=== PATIENT | female | born 1960 | race Caucasian/White ===

== ENCOUNTER → 2019-03-28 12:39 | Outpatient (BNVA) | payer OTHER, SELFPAY | PROVIDERS: Family Provider Nurse Practitioner; PCP Nurse Practitioner; Visit Provider Nurse Practitioner | DX: I10 Essential (primary) hypertension (principal); F41.1 Generalized anxiety disorder | CPT/HCPCS: 36415; 80053; 80061 ==

== ENCOUNTER → 2019-07-27 13:47 | Outpatient (BNVA) | payer OTHER, SELFPAY | PROVIDERS: Family Provider Nurse Practitioner; PCP Nurse Practitioner; Visit Provider Nurse Practitioner | DX: I10 Essential (primary) hypertension (principal); F41.1 Generalized anxiety disorder | CPT/HCPCS: 80053 ==

== ENCOUNTER → 2020-02-06 12:00 | Outpatient (BNVA) | payer OTHER, SELFPAY | PROVIDERS: Family Provider Nurse Practitioner; PCP Nurse Practitioner; Visit Provider Nurse Practitioner | DX: I10 Essential (primary) hypertension (principal); F41.1 Generalized anxiety disorder; J30.1 Allergic rhinitis due to pollen; E83.52 Hypercalcemia; Z23 Encounter for immunization | CPT/HCPCS: 80053; 80061; 82310; 83970; 84443 ==

== ENCOUNTER 2020-07-09 19:24 | Emergency (ER) | payer OTHER, SELFPAY ==
[2020-07-09 19:30] VITALS: BP 134/83; PULSE 96; RESP 18; TEMP 37.1; O2SAT 96; BMI 25.8
[2020-07-09 22:34] LABS: Hematocrit 44.9 % (37.0-47.0); Hemoglobin 14.9 g/dL (11.5-15.3); Mean Corpuscular HGB Conc 33.2 g/dL (30.0-36.0); Mean Corpuscular Hemoglobin 29.6 pg (28.0-34.0); Mean Corpuscular Volume 89.1 fL (81-99); Mean Platelet Volume 9.6 fL (7.4-10.4); Platelet Count 325 10^3/cmm (130-400); Red Blood Count 5.04 10^6/uL (4.1-5.3); Red Cell Distribution Width 12.9 % (12.1-15.1); White Blood Count 19.8 10^3/uL (4.0-10.0)
[2020-07-09 22:44] LABS: Add Urine Microscopic? YES; Bacteria Urine 2+ /hpf; Bilirubin Urine 1+ (Negative); Blood Urine 3+ (Negative); Glucose Urine UA Norm (Normal); Ketones Urine Negative (Negative); Leukocyte Esterase Urine Negative (Negative); Mucus Urine 1+ /hpf; Nitrate Urine Negative (Negative); Protein Urine 1+ (Negative); RBC Urine 0-4 /hpf (0-2); Urine Appearance Clear (CLEAR); Urine Color Yellow (Yellow); Urobilinogen Urine Norm (Negative); pH Urine 5 (5-7)
[2020-07-09] MEDS: ondansetron 2 mg/ML SDV 2 mL 4 MG IVP (22:48)
[2020-07-09] MEDS: sodium chloride 0.9% 1,000 ML 999 ML IV (22:48)
--- NOTE | 2020-07-09 22:48 | ED_ITS ---
HPI - Abdominal Pain General: Chief Complaint: Abdominal Pain Stated Complaint: H/A, EAR ACHE, N/V, SICK X 4 DAYS Time Seen by Provider: 07/09/20 21:51 Source: patient Mode of arrival: ambulatory Limitations: no limitations History of Present Illness: HPI narrative: 60-year-old female patient presents to the emergency department with onset of nausea vomiting x4 days. She reports today onset of right lower quadrant pain. Reports not able to tolerate fluids or food without vomiting. Reports last ate last night. She states has experienced headache with earache. She reports history of gallbladder removal. She reports every time she drinks something she has diarrhea. She has had several episodes today. Denies hematemesis or hematochezia. She reports right lower quadrant pain seems to make nausea worse. She reports chills but has not taken her temperature. She also reports cough congestion, she reports abdominal pain with cough. No ill contacts in her home/exposure. MD elicited complaint: abdominal pain Onset (ago): day(s) (4) Pain Consistency: constant Location: None Exacerbating factors: eating Relieving factors: rest Associated Symptoms: Reports anorexia, chills, diarrhea, loose stools, nausea, poor appetite and vomiting; Denies coffee ground emesis, GI cramping, fever(s), heartburn, hematochezia, hematuria, hematemesis, fecal incontinence, melena and syncope Review of Systems General: Reports: 10 or more systems reviewed and unremarkable except in HPI and below Const: Reports: chills, fatigue and malaise; Denies: fever(s), body aches or change in sleep pattern Eyes: Denies: change in vision, blurry vision, eye discomfort, eye redness or yellow eyes ENMT: Denies: throat pain, uvular edema, hoarseness, oral sores, dental pain or disequilibrium Card: Denies: palpitations, swelling of feet/ankles, syncope, dyspnea on exertion or orthopnea Resp: Reports: productive cough and chest congestion; Denies: dyspnea, non-productive cough or wheezing GI: Reports: abdominal pain, nausea, vomiting and diarrhea; Denies: hematemesis, coffee ground emesis, heartburn, GI cramping, fecal incontinence, hematochezia or melena : Denies: hematuria Musc: Denies: neck pain, back pain, joint pain or joint warmth Skin/Breast: Denies: rash or pruritus Neuro: Reports: headache(s); Denies: weakness in extremities, sensory changes, lack of coordination, difficulty walking, confusion, behavioral changes or difficulty communicating thoughts Psych: Denies: anxiety or depression Wayne/Lymph: Denies: easy bruising PFSH ED PFSH: Medical History Arthritis, rheumatoid Blindness of left eye Caffeine dependence Depression Essential (primary) hypertension Generalized anxiety disorder Seasonal allergic rhinitis due to pollen Tobacco abuse Surgical History History of cholecystectomy Family History Mother Cancer Sister Cancer Son Family history of premature coronary artery disease Social History Smoking and tobacco status: former smoker Second hand smoke exposure: No Smoking risk assessment/counseling performed?: No Alcohol intake: never Desire information about alcohol rehabilitation?: No Counseling given: No Desire information about substance/drug rehabilitation?: No Counseling given: No Caregiver/support person: No Lives independently: Yes Household members: spouse Marital status: service: No History of recent travel: No Current gender identity: Female Physical Exam Const: COMMON NORMALS: no acute distress, patient oriented x3, alert and well nourished (Appears not feeling well) GENERAL APPEARANCE: cooperative, well developed and frail appearing; not anxious and not ill appearing ORIENTATION/CONSCIOUSNESS: Yes awake, Yes oriented to person, Yes oriented to place and Yes oriented to time HENMT: COMMON NORMALS: normocephalic, atraumatic, external ears normal, EAC's normal, Normal external nose present and moist oral mucous membranes HEAD & SCALP: normal to inspection, normocephalic and atraumatic FACE & SINUS: normal facial exam, face symmetric and sinus tenderness frontal; no ecchymosis, no erythema and no edema NOSE: Normal external nose present a nd Normal nares present; no Nasal discharge present EXTERNAL EAR: Yes external ears normal EXTERNAL AUDITORY CANAL: EAC's normal TYMPANIC MEMBRANE: TM normal on the right and TM abnormal TM laterality: left Details: dull, erythematous and loss of landmarks MOUTH: lip normal and moist mucous membranes abnormal (dry); no muffled voice THROAT: posterior oropharynx abnormal cobblestoning and erythema; no uvular edema Eye: COMMON NORMALS: Equal, round and reactive pupils present and EOMs intact bilaterally GENERAL EYE: appearance normal, both eyes and all related structures PERIORBITAL: periorbital findings normal EYELID: eyelids normal PUPIL: Yes Equal, round and reactive pupils present Neck/C-Spine: COMMON NORMALS: full ROM and no lymphadenopathy GENERAL: Yes normal visual inspection and Yes trachea midline CERVICAL SPINE: Yes cervical ROM normal Lymph: LYMPHATIC: no lymphadenopathy noted Chest: COMMONS NORMALS: normal inspection of the chest and normal palpation of entire chest wall Resp: COMMON NORMALS: normal respiratory effort, No retractions, No use of accessory muscles and clear to auscultation bilaterally EFFORT & INSPECTION: Yes able to speak in complete sentences AUSCULTATION: clear to auscultation bilaterally Cardio: COMMON NORMALS: regular rate, regular rhythm, S1 normal heart sound present, S2 normal heart sound present and Peripheral pulses 2+ throughout RATE: regular rate RHYTHM: regular rhythm HEART SOUNDS: S1 normal heart sound present and S2 normal heart sound present PERIPHERAL PULSES: Peripheral pulses 2+ throughout GI: COMMON NORMALS: Soft to palpation INSPECTION: Yes normal to inspection, No abdominal wall ecchymosis, No abdominal distension and No central obesity PALPATION: Yes Soft to palpation and Yes Tenderness to palpation present (GI) Details: RLQ (Positive McBurney's, negative rebound, negative psoas) Back/Pelvis: COMMON NORMALS: thoracic and lumbar spine normal to inspection, no thoracic nor lumbar tenderness and thoraco-lumbar ROM normal GENERAL BACK: Yes CVA tenderness CVA tenderness: right Extremity: COMMON NORMALS: normal to inspection, full ROM, capillary refill normal and no pedal edema GENERAL: Yes normal exam except as noted and Yes cyanosis (left hand, cool, warmed with normal cap refill and color) Neuro: COMMON NORMALS: patient oriented x3 and no focal motor deficits SEN SORIUM/ORIENTATION: Yes alert, Yes oriented to person, Yes oriented to place and Yes oriented to time Psych: COMMON NORMALS: mental status grossly normal, Normal thought process present and cooperative ACTIVITY/MOTOR BEHAVIOR: Yes appropriate eye contact THOUGHT PROCESS: Normal thought process present Skin: COMMON NORMALS: no rashes or lesions noted, no wounds, turgor normal, no petechiae and no mottling GENERAL SKIN EXAM: no rashes or lesions noted, turgor normal and dry skin Course Vital Signs: Vital signs: Vital Signs Temperature 98.8 F 07/09/20 19:30 Pulse Rate 86 07/10/20 01:26 Respiratory Rate 19 H 07/10/20 01:26 Blood Pressure 116/84 07/10/20 01:26 Pulse Oximetry 98 07/10/20 01:26 MDM - Abdominal Pain MDM Narrative: Medical decision making narrative: 60-year-old female patient presents to the emergency department with several day history of nausea vomiting. She is not able to tolerate p.o. fluids today as nausea would occur. She reports fever and chills but did not take her temperature. Oxygen saturation was on the low side during her stay, 89 to 92%. She is not oxygen dependent at home. CTA of the chest completed secondary to hypoxic reading during her stay. CTA revealed bronchopneumonia right upper lobe. CT scan of the abdomen pelvis with IV contrast negative for acute findings. Serology did reveal leukocytosis of 19,000 white count. Lipase normal, chemistry with no critical findings; rapid strep screen was negative, lactic acid 1.6. She did not complain of chest pain. EKG with sinus rhythm with possible left atrial enlargement, heart rate 84. Zofran and morphine administered here in the ED, nausea resolved she was able to tolerate p.o. fluids. She reports was feeling better after 1 L of IV fluids administered. Home oxygen eval completed and she did not qualify for home O2. Albuterol inhaler was provided with instruction per respiratory therapy, she was instructed to utilize it every 4 hours as needed for pain, and did help her cough and congestion. Differential Diagnosis: Differential diagnosis abdominal pain: Likely abdominal pain, calculus of kidney and endometriosis Lab Data: Labs: Lab Results 07/09/20 07/09/20 07/09/20 Range/Units 22:16 22:16 22:17 WBC 19.8 H (4.0-10.0) 10^3/ uL RBC 5.04 (4.1-5.3) 10^6/u L Hgb 14.9 (11.5-15.3) g/dL Hct 44.9 (37.0-47.0) % MCV 89.1 (81-99) fL MCH 29.6 (28.0-34.0) pg MCHC 33.2 (30.0-36.0) g/dL RDW 12.9 (12.1-15.1) % Plt Count 325 (130-400) 10^3/c mm MPV 9.6 (7.4-10.4) fL Lymph % (Auto) Not Reportable [place] % (Auto) Not Reportable Lymph # (Auto) Not Reportable [place] # (Auto) Not Reportable Total Counted 100 (0-100) Atypical Lymphs % 2.0 (0-5) % Absolute Neutrophi ls 16.2 H (1.4-6.5) 10^3/c mm Segmented Neutroph ils 57 % Abs Segm Neuts (Ma n) 11.3 H (1.6-7.1) 10/cmm Band Neutrophils 25.0 % Abs Band Neuts (Ma n) 5.0 H (0.0-1.2) 10^3/c mm Absolute Lymphocyt es 2.2 (1.2-3.4) 10^3/c mm Lymphocytes (Manua l) 9 % Monocytes (Manual) 7.0 % Absolute Monocytes 1.4 H (0.1-0.6) 10^3/c mm Eosinophils (Manua l) 0 % Absolute Eosinophi ls 0.0 (0.0-0.7) 10^3/c mm Basophils (Manual) 0.0 % Absolute Basophils 0.0 (0.0-0.2) 10^3/c mm Platelet Estimate Normal (Normal) Sodium 130 L (136-145) mmol/L Potassium 3.4 L (3.5-5.1) mmol/L Chloride 94 L (98-107) mmol/L Carbon Dioxide 25 (22-29) mmol/L Anion Gap 14.4 (5-19) BUN 12 (8-23) mg/dL Creatinine 1.0 H (0.5-0.9) mg/dL GFR Calculation 56.6 L (90-130) mL/min Glucose 109 (65-115) mg/dL Calculated Osmolal ity 270 L (285-295) mOsm/k g Lactate (0.5-2.2) mmol/L Calcium 10.2 (8.5-10.5) mg/dL Total Bilirubin 0.5 (0.15-1.2) mg/dL AST 20 (0-32) U/L ALT 34 H (0-33) U/L Alkaline Phosphata se 251 H (35-105) IU/L Total Protein 7.6 (6.6-8.7) g/dL Albumin 3.5 (3.5-5.2) g/dL Globulin 4.1 (1.3-4.6) g/dL Lipase 41 (13-60) U/L Urine Color (Yellow) Urine Appearance (CLEAR) Urine pH (5-7) Ur Specific Gravit y (1.005-1.030) Urine Protein (Negative) Urine Glucose (UA) (Normal) Urine Ketones (Negative) Urine Blood (Negative) Urine Nitrate (Negative) Urine Bilirubin (Negative) Urine Urobilinogen (Negative) mg/dL Ur Leukocyte Marly ase (Negative) Urine RBC (0-2) /hpf Urine WBC (0-5) /hpf Ur Squamous Epith Cells (0-5) /hpf Amorphous Sediment Urine Bacteria (NONE) /hpf Urine Mucus /hpf Influenza Type A A g Negative (Negative) Influenza Type B A g Negative (Negative) Group A Strep Rapi d (Negative) 07/09/20 07/09/20 07/09/20 Range/Units 22:21 22:59 23:23 WBC (4.0-10.0) 10^3/ uL RBC (4.1-5.3) 10^6/u L Hgb (11.5-15.3) g/dL Hct (37.0-47.0) % MCV (81-99) fL MCH (28.0-34.0) pg MCHC (30.0-36.0) g/dL RDW (12.1-15.1) % Plt Count (130-400) 10^3/c mm MPV (7.4-10.4) fL Lymph % (Auto) [place] % (Auto) Lymph # (Auto) [place] # (Auto) Total Counted (0-100) Atypical Lymphs % (0-5) % Absolute Neutrophi ls (1.4-6.5) 10^3/c mm Segmented Neutroph ils % Abs Segm Neuts (Ma n) (1.6-7.1) 10/cmm Band Neutrophils % Abs Band Neuts (Ma n) (0.0-1.2) 10^3/c mm Absolute Lymphocyt es (1.2-3.4) 10^3/c mm Lymphocytes (Manua l) % Monocytes (Manual) % Absolute Monocytes (0.1-0.6) 10^3/c mm Eosinophils (Manua l) % Absolute Eosinophi ls (0.0-0.7) 10^3/c mm Basophils (Manual) % Absolute Basophils (0.0-0.2) 10^3/c mm Platelet Estimate (Normal) Sodium (136-145) mmol/L Potassium (3.5-5.1) mmol/L Chloride (98-107) mmol/L Carbon Dioxide (22-29) mmol/L Anion Gap (5-19) BUN (8-23) mg/dL Creatinine (0.5-0.9) mg/dL GFR Calculation (90-130) mL/min Glucose (65-115) mg/dL Calculated Osmolal ity (285-295) mOsm/k g Lactate 1.6 (0.5-2.2) mmol/L Calcium (8.5-10.5) mg/dL Total Bilirubin (0.15-1.2) mg/dL AST (0-32) U/L ALT (0-33) U/L Alkaline Phosphata se (35-105) IU/L Total Protein (6.6-8.7) g/dL Albumin (3.5-5.2) g/dL Globulin (1.3-4.6) g/dL Lipase (13-60) U/L Urine Color Yellow (Yellow) Urine Appearance Clear (CLEAR) Urine pH 5 (5-7) Ur Specific Gravit y 1.010 (1.005-1.030) Urine Protein 1+ H (Negative) Urine Glucose (UA) Norm (Normal) Urine Ketones Negative (Negative) Urine Blood 3+ H (Negative) Urine Nitrate Negative (Negative) Urine Bilirubin 1+ H (Negative) Urine Urobilinogen Norm (Negative) mg/dL Ur Leukocyte Marly ase Negative (Negative) Urine RBC 0-4 H (0-2) /hpf Urine WBC 10-15 H (0-5) /hpf Ur Squamous Epith Cells 10-15 H (0-5) /hpf Amorphous Sediment Not Reportable Urine Bacteria 2+ H (NONE) /hpf Urine Mucus 1+ /hpf Influenza Type A A g (Negative) Influenza Type B A g (Negative) Group A Strep Rapi d Negative (Negative) Imaging Data ^: CT Abd/Pel: Radiologist's impression: [address] [address] [address] Scan Report Signed Patient: Linda Livingston #: [id number] : 1960Acct#:[id number] Age/Sex: 60 / FADM Date: 07/09/20 Loc: ERRoom/Bed: Attending Dr: Ordering Provider/Ordering MD: Sharon Arellano Date of Service: 07/09/20 Procedure(s): CT angio chest w abd pel w con Accession Number(s): [id number] Report Number: [id number] PROCEDURE INFORMATION: Exam: CTA Chest With Contrast Exam date and time: 07/09/2020 11:26 PM Age: 60 years old Clinical indication: Nausea and vomiting; Cough and shortness of breath; Prior surgery; Surgery type: Gb; Patient HX: N/v, REYEZ, rlq pain, cough, fever, SOB; Additional info: Cough, SOB, abd pain TECHNIQUE: Imaging protocol: Computed tomographic angiography of the chest with contrast. 3D rendering (Not supervised by radiologist): MIP and/or 3D reconstructed images were created by the technologist. Radiation optimization: All CT scans at this facility use at least one of these dose optimization techniques: automated exposure control; mA and/or kV adjustment per patient size (includes targeted exams where dose is matched to clinical indication); or iterative reconstruction. Contrast material: OMNI 350; Contrast volume: 95 ml; Contrast route: INTRAVENOUS (IV); COMPARISON: CR Chest 2 views* [id number] 12/03/2018 8:05 PM RADIATION DOSE METRICS: Total DLP (mGy-cm): 1539 FINDINGS: Pulmonary arteries: Normal. No pulmonary emboli. Aorta: Unremarkable. No aortic aneurysm. No aortic dissection. Lungs: Right upper lobe consolidation in the apical and posterior segments with air bronchograms. No obstructing endobronchial lesion. No peripheral honeycombing. Mild coarsening of the pulmonary interstitium diffusely. Pleural spaces: Unremarkable. No pneumothorax. No pleural effusion. Heart: Unremarkable. No cardiomegaly. No pericardial effusion. Lymph nodes: Unremarkable. No enlarged lymph nodes. Bones/joints: Unremarkable. No acute fracture. Soft tissues: Unremarkable. IMPRESSION: 1. Negative for pulmonary embolism. 2. Right upper lobe bronchopneumonia. 3. Recommend outpatient radiographic follow-up to resolution. PROCEDURE INFORMATION: Exam: CT Abdomen And Pelvis With Contrast Exam date and time: 07/09/2020 11:26 PM Age: 60 years old Clinical indication: Nausea and vomiting; Cough and shortness of breath; Prior surgery; Surgery type: Gb; Patient HX: N/v, REYEZ, rlq pain, cough, fever, SOB; Additional info: Cough, SOB, abd pain TECHNIQUE: Imaging protocol: Computed tomography of the abdomen and pelvis with contrast. Radiation optimization: All CT scans at this facility use at least one of these dose optimization techniques: automated exposure control; mA and/or kV adjustment per patient size (includes targeted exams where dose is matched to clinical indication); or iterative reconstruction. Contrast material: OMNI 350; Contrast volume: 95 ml; Contrast route: INTRAVENOUS (IV); COMPARISON: CR Chest 2 views* [id number] 12/03/2018 8:05 PM RADIATION DOSE METRICS: Total DLP (mGy-cm): 1539 FINDINGS: Liver: Normal. No mass. Gallbladder and bile ducts: Cholecystectomy. No obstruction of biliary system. Pancreas: Normal. No ductal dilation. Spleen: Normal. No splenomegaly. Adrenal glands: Normal. No mass. Kidneys and ureters: Incidental finding of bilateral simple renal cysts. Negative hydronephrosis. No perinephric inflammation. No renal stones. Stomach and bowel: Scattered diverticulosis coli. No inflammatory bowel wall thickening. Negative for bowel obstruction or perforation. Moderate fecal volume. Appendix: No evidence of appendicitis. Intraperitoneal space: Unremarkable. No free air. No significant fluid collection. Vasculature: Scattered atherosclerosis of abdominal aorta. No aneurysm. No dissection. Lymph nodes: Unremarkable. No enlarged lymph nodes. Urinary bladder: Unremarkable as visualized. Reproductive: Unremarkable as visualized. Bones/joints: Unremarkable. No acute fracture. Significant multilevel lower lumbar spine disc disease. Soft tissues: Unremarkable. CT/CT angio chest w abd pel w con IMPRESSION: No acute pathology in abdomen or pelvis. COMMENTS: Consistent with the [employer]'s Incidental Findings Committee white paper (J Am Cristian Radiol 2018): Any incidental renal lesion less than 1 cm or classified as too small to characterize, or any incidental cystic renal lesion characterized as simple-appearing, is likely benign. No follow-up imaging is recommended for these lesions per consensus recommendations based on imaging criteria. Radiation Dose CTDIVOL = (mGy): DLP = 1539~1539 (mGy-cm) Dictated By:Adama Patel Signed By:Camilo Patel Date/Time:07/09/202353 DD/ 52 Discharge Plan Discharge Patient Disposition: Home Clinical Impression: Bronchopneumonia, Suspected 2019-nCoV infection Nausea & vomiting Qualifiers: Vomiting type: unspecified Vomiting Intractability: intractable Qualified Code(s): R11.2 - Nausea with vomiting, unspecified Condition: Stable Prescriptions: New levofloxacin 750 mg tablet 750 mg PO DAILY 10 Days Qty: 10 RF: 0 Decadron 6 mg tablet 6 mg PO DAILY Qty: 10 RF: 0 Zofran 4 mg tablet 4 mg PO Q4H 5 Days Qty: 14 RF: 0 No Action amlodipine 5 mg tablet 5 mg PO QDAY Qty: 30 RF: 5 cetirizine 10 mg tablet 10 mg PO DAILY Qty: 30 RF: 5 lisinopril 30 mg tablet 30 mg PO DAILY Qty: 30 RF: 5 sertraline [Zoloft] 25 mg tablet 25 mg PO DAILY Qty: 30 RF: 5 mometasone [Nasonex] 50 mcg/actuation spray,non-aerosol 2 spray intranasal DAILY Qty: 17 RF: 5 acetaminophen 325 mg capsule 325 mg PO ONCE PRNRF: 0 naproxen sodium [Aleve] 220 mg capsule 220 mg PO BID PRNRF: 0 Discharge Orders: Discharge ED (Routine); Ordered 07/10/20 Ordered By: Sharon Arellano Referrals: Verenice Myers, PRIVATE CLIENT ADVISOR-C [Primary Care Provider] - Discharge Diet: Usual diet Discharge Activity: Limit activity as instructed Patient Instructions: Acute Nausea and Vomiting (ED), Abdominal Pain (ED), Pneumonia (ED), Opioid Safety Activity Restrictions/Additional Instructions: Take Levaquin once daily until all gone Steroid, dexamethasone has been provided to help with breathing and inflammation Zofran has been provided to help with nausea vomiting, take as directed, clear liquid diet for the next 24 hours then advance as tolerated. Avoid fried greasy fatty foods as this can cause stomach upset. R[place]auer diet recommended, toast, applesauce and eggs as examples. Follow-up with your primary care provider in the next 2 to 3 days to ensure you are improving. Covid testing has been completed, remain in quarantine until results are known. If you test positive, the [facility] department will be contacting you Rest at home, no vigorous activity until feeling better, drink plenty of fluids to ensure you remain hydrated Return to the emergency department if you develop difficulty breathing, inability to catch her breath or other worsening symptoms such as chest pain. Continue albuterol as directed by respiratory therapy, 2 puffs every 4 hours as needed for chest congestion, wheezing or cough Coding Level of Care Code ED Driver Starting Gate for Chg Fwd Exam Comprehensive
[2020-07-09 22:49] LABS: Influenza A by IFA Negative (Negative); Influenza B by IFA Negative (Negative)
[2020-07-09 22:50] VITALS: BP 135/80; PULSE 83; RESP 16; O2SAT 89
[2020-07-09 22:54] LABS: Alanine Aminotransferase 34 U/L (0-33); Albumin Level 3.5 g/dL (3.5-5.2); Alkaline Phosphatase 251 IU/L (35-105); Anion Gap 14.4 (5-19); Aspartate Amino Transferase 20 U/L (0-32); Blood Urea Nitrogen 12 mg/dL (8-23); Calcium 10.2 mg/dL (8.5-10.5); Carbon Dioxide 25 mmol/L (22-29); Chloride 94 mmol/L (98-107); Creatinine Clr Calc Pharmacy 65.3408; Globulin 4.1 g/dL (1.3-4.6); Glomerular Filtration Rate 56.6 mL/min (90-130); Glucose 109 mg/dL (65-115); Lipase 41 U/L (13-60); Osmolality Calculated 270 mOsm/kg (285-295); Potassium 3.4 mmol/L (3.5-5.1); Sodium 130 mmol/L (136-145); Total Bilirubin 0.5 mg/dL (0.15-1.2); Total Protein 7.6 g/dL (6.6-8.7)
[2020-07-09 22:55] VITALS: RESP 14; O2SAT 97
[2020-07-09] MEDS: morphine 4 mg/mL SDV 1 mL 2 MG IVP (22:55)
[2020-07-09 23:00] VITALS: O2SAT 97
--- NOTE | 2020-07-09 23:10 | ECG_ITS ---
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1960 Requested By: Sharon Marmolejo Order Number: [id number] Reading MD: JOVI DANIELS Measurements Intervals [place] Rate: 84 P: 60 LA: 151 QRS: 23 QRSD: 76 T: 62 QT: 361 QTc: 427 Interpretive Statements SINUS RHYTHM POSSIBLE LEFT ATRIAL ENLARGEMENT [-0.1mV P WAVE IN V1/V2] NONSPECIFIC T-WAVE ABNORMALITY Compared to ECG 12/09/2018 19:55:55 Sinus bradycardia no longer present T-wave abnormality still present Electronically Signed On 07-11-2020 19:24:47 CDT by JOVI DANIELS [id number]
--- NOTE | 2020-07-09 23:10 | CTR_ITS ---
PROCEDURE INFORMATION: Exam: CTA Chest With Contrast Exam date and time: 07/09/2020 11:26 PM Age: 60 years old Clinical indication: Nausea and vomiting; Cough and shortness of breath; Prior surgery; Surgery type: Gb; Patient HX: N/v, REYEZ, rlq pain, cough, fever, SOB; Additional info: Cough, SOB, abd pain TECHNIQUE: Imaging protocol: Computed tomographic angiography of the chest with contrast. 3D rendering (Not supervised by radiologist): MIP and/or 3D reconstructed images were created by the technologist. Radiation optimization: All CT scans at this facility use at least one of these dose optimization techniques: automated exposure control; mA and/or kV adjustment per patient size (includes targeted exams where dose is matched to clinical indication); or iterative reconstruction. Contrast material: OMNI 350; Contrast volume: 95 ml; Contrast route: INTRAVENOUS (IV); COMPARISON: CR Chest 2 views* [id number] 12/03/2018 8:05 PM RADIATION DOSE METRICS: Total DLP (mGy-cm): 1539 FINDINGS: Pulmonary arteries: Normal. No pulmonary emboli. Aorta: Unremarkable. No aortic aneurysm. No aortic dissection. Lungs: Right upper lobe consolidation in the apical and posterior segments with air bronchograms. No obstructing endobronchial lesion. No peripheral honeycombing. Mild coarsening of the pulmonary interstitium diffusely. Pleural spaces: Unremarkable. No pneumothorax. No pleural effusion. Heart: Unremarkable. No cardiomegaly. No pericardial effusion. Lymph nodes: Unremarkable. No enlarged lymph nodes. Bones/joints: Unremarkable. No acute fracture. Soft tissues: Unremarkable. IMPRESSION: 1. Negative for pulmonary embolism. 2. Right upper lobe bronchopneumonia. 3. Recommend outpatient radiographic follow-up to resolution. PROCEDURE INFORMATION: Exam: CT Abdomen And Pelvis With Contrast Exam date and time: 07/09/2020 11:26 PM Age: 60 years old Clinical indication: Nausea and vomiting; Cough and shortness of breath; Prior surgery; Surgery type: Gb; Patient HX: N/v, REYEZ, rlq pain, cough, fever, SOB; Additional info: Cough, SOB, abd pain TECHNIQUE: Imaging protocol: Computed tomography of the abdomen and pelvis with contrast. Radiation optimization: All CT scans at this facility use at least one of these dose optimization techniques: automated exposure control; mA and/or kV adjustment per patient size (includes targeted exams where dose is matched to clinical indication); or iterative reconstruction. Contrast material: OMNI 350; Contrast volume: 95 ml; Contrast route: INTRAVENOUS (IV); COMPARISON: CR Chest 2 views* [id number] 12/03/2018 8:05 PM RADIATION DOSE METRICS: Total DLP (mGy-cm): 1539 FINDINGS: Liver: Normal. No mass. Gallbladder and bile ducts: Cholecystectomy. No obstruction of biliary system. Pancreas: Normal. No ductal dilation. Spleen: Normal. No splenomegaly. Adrenal glands: Normal. No mass. Kidneys and ureters: Incidental finding of bilateral simple renal cysts. Negative hydronephrosis. No perinephric inflammation. No renal stones. Stomach and bowel: Scattered diverticulosis coli. No inflammatory bowel wall thickening. Negative for bowel obstruction or perforation. Moderate fecal volume. Appendix: No evidence of appendicitis. Intraperitoneal space: Unremarkable. No free air. No significant fluid collection. Vasculature: Scattered atherosclerosis of abdominal aorta. No aneurysm. No dissection. Lymph nodes: Unremarkable. No enlarged lymph nodes. Urinary bladder: Unremarkable as visualized. Reproductive: Unremarkable as visualized. Bones/joints: Unremarkable. No acute fracture. Significant multilevel lower lumbar spine disc disease. Soft tissues: Unremarkable. CT/CT angio chest w abd pel w con IMPRESSION: No acute pathology in abdomen or pelvis. COMMENTS: Consistent with the [employer]'s Incidental Findings Committee white paper (J Am Cristian Radiol 2018): Any incidental renal lesion less than 1 cm or classified as too small to characterize, or any incidental cystic renal lesion characterized as simple-appearing, is likely benign. No follow-up imaging is recommended for these lesions per consensus recommendations based on imaging criteria. Radiation Dose CTDIVOL = (mGy): DLP = 1539~1539 (mGy-cm)
[2020-07-09 23:19] LABS: Absolute Segmented Neutrophil 11.3 10/cmm (1.6-7.1); Segmented Neutrophils 57 %; Total Cells Counted 100 (0-100)
[2020-07-09 23:20] LABS: Rapid Strep A Test Negative (Negative)
[2020-07-09 23:20] LABS: Absolute Neutrophil 16.2 10^3/cmm (1.4-6.5); Eosinophils 0 %; Lymphocytes 9 %; Lymphocytes Absolute 2.2 10^3/cmm (1.2-3.4); Monocytes Absolute 1.4 10^3/cmm (0.1-0.6); Platelet Estimate Normal (Normal)
[2020-07-09] MEDS: iohexol 350 mg/mL 100 mL Btl IV (23:34)
[2020-07-09 23:44] LABS: Lactate (Lactic Acid level) 1.6 mmol/L (0.5-2.2)
[2020-07-10] MEDS: levoFLOXacin 750 mg Tablet PO (00:21)
[2020-07-10 00:23] VITALS: BP 156/104; PULSE 94; RESP 16; O2SAT 95
[2020-07-10 00:44] VITALS: PULSE 82; RESP 18; O2SAT 93
[2020-07-10] MEDS: albuterol 8 gm MDI 2 PUFF INHALATION (00:44)
[2020-07-10 00:48] VITALS: O2SAT 94; O2SAT 96
[2020-07-10 00:52] VITALS: PULSE 88
[2020-07-10] MEDS: ondansetron 4 MG Tablet PO (01:25)
[2020-07-10 01:26] VITALS: BP 116/84; PULSE 86; RESP 19; O2SAT 98
== END 2020-07-10 01:27 | disposition home or self-care (01) ==
PROVIDERS: Emergency Provider Nurse Practitioner Family; PCP Nurse Practitioner
DX: J18.0 Bronchopneumonia, unspecified organism (principal); Z20.822 Contact with and (suspected) exposure to COVID-19; I10 Essential (primary) hypertension; Z87.891 Personal history of nicotine dependence
CPT/HCPCS: 36415; 71275; 74177; 80053; 81001; 83605; 83690; 85007; 85025; 87081; 87804; 87880; 93005; 94640; 96361; 96374; 96375; 99284; J2270; J2405; J3535; J7030; Q0162; Q9967

== ENCOUNTER → 2020-07-12 11:33 | Outpatient (BNVA) | payer OTHER, SELFPAY | PROVIDERS: PCP Nurse Practitioner; Visit Provider Nurse Practitioner | DX: J18.0 Bronchopneumonia, unspecified organism (principal); I10 Essential (primary) hypertension | CPT/HCPCS: 71046; 80053; 85025 ==

== ENCOUNTER → 2020-07-19 14:47 | Outpatient (BNVA) | payer OTHER, SELFPAY | PROVIDERS: PCP Nurse Practitioner; Visit Provider Nurse Practitioner | DX: J18.0 Bronchopneumonia, unspecified organism (principal); I10 Essential (primary) hypertension; J30.1 Allergic rhinitis due to pollen; B37.0 Candidal stomatitis; K21.9 Gastro-esophageal reflux disease without esophagitis; F41.1 Generalized anxiety disorder | CPT/HCPCS: 71046; 80053; 80061; 81000; 84443; 85025 ==

== ENCOUNTER → 2020-08-06 10:09 | Outpatient (BNVA) | payer OTHER, SELFPAY | PROVIDERS: PCP Nurse Practitioner; Visit Provider Nurse Practitioner | DX: J18.0 Bronchopneumonia, unspecified organism (principal) | CPT/HCPCS: 71046; 80053; 85025 ==

== ENCOUNTER 2022-07-20 09:50 | Inpatient (IN) | payer OTHER, SELFPAY ==
[2022-07-20] VITALS (120 sets, daily range): BP systolic 130–224; BP diastolic 61–157; PULSE 43–107; RESP 5–27; TEMP 36.6; O2SAT 89–98; BMI 27.1
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
[2022-07-20 10:06] LABS: Basophils # 0.1 10^3/uL (0.0-0.1); Basophils % 0.5 %; Eosinophils # 0.3 10^3/uL (0.0-0.8); Eosinophils % 2.5 %; Hematocrit 48.4 % (37.0-47.0); Hemoglobin 15.8 g/dL (11.5-15.3); Lymphocytes # 2.3 10^3/uL (0.8-4.8); Lymphocytes % 20.7 %; Mean Corpuscular HGB Conc 32.6 g/dL (30.0-36.0); Mean Platelet Volume 9.5 fL (7.4-10.4); Monocytes # 0.7 10^3/uL (0.2-0.9); Monocytes % 6.1 %; Neutrophils # 7.74 10^3/uL (1.8-7.7); Neutrophils % 69.9 %; Nucleated Red Blood Cells % 0 %; Platelet Count 257 10^3/cmm (130-400); Red Blood Count 5.26 10^6/uL (4.1-5.3); Red Cell Distribution Width 12.5 % (12.1-15.1); White Blood Count 11.1 10^3/uL (4.0-10.0)
[2022-07-20 10:25] LABS: Alanine Aminotransferase 28 U/L (0-33); Albumin Level 4.3 g/dL (3.5-5.2); Alkaline Phosphatase 109 U/L (35-105); Anion Gap 13.7 (5-19); Aspartate Amino Transferase 21 U/L (0-32); Blood Urea Nitrogen 17 mg/dL (8-23); Calcium 9.7 mg/dL (8.5-10.5); Carbon Dioxide 25 mmol/L (22-29); Chloride 104 mmol/L (98-107); Globulin 3.1 g/dL (1.3-4.6); Glomerular Filtration Rate 56.2 mL/min (90-130); Glucose 118 mg/dL (65-115); Osmolality Calculated 291 mOsm/kg (285-295); Potassium 3.7 mmol/L (3.5-5.1); Sodium 139 mmol/L (136-145); Total Bilirubin 0.2 mg/dL (0.15-1.2); Total Protein 7.4 g/dL (6.6-8.7)
[2022-07-20 10:27] LABS: Alcohol Level < 10 mg/dL (0-10); Salicylate < 0.3 mg/dL (3-10)
[2022-07-20 10:29] LABS: Acetaminophen 108.5 ug/mL (10-30)
[2022-07-20 10:56] LABS: Amphetamines Screen Urine Positive (Negative); Barbiturates Screen Urine Negative (Negative); Benzodiazepines Screen Urine Negative (Negative); Cocaine Screen Urine Negative (Negative); Opiate Screen Urine Negative (Negative); PCP Screen Urine Negative (Negative); THC Screen Urine Positive (Negative)
[2022-07-20 10:57] LABS: Add Urine Culture? Yes; Add Urine Microscopic? YES; Bacteria Urine 2+ /hpf; Bilirubin Urine Neg (Negative); Blood Urine Neg (Negative); Glucose Urine UA Norm (Normal); Ketones Urine Negative (Negative); Leukocyte Esterase Urine Negative (Negative); Mucus Urine 2+ /hpf; Nitrate Urine Negative (Negative); Protein Urine 1+ (Negative); RBC Urine 0-4 /hpf (0-2); Specific Gravity, Urine 1.025 (1.005-1.030); Urine Appearance SL Hazy (CLEAR); Urine Color Yellow (Yellow); Urobilinogen Urine Norm (Negative); WBC Urine 0-4 /hpf (0-5); pH Urine 5 (5-7)
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
[2022-07-20 12:23] LABS: Acetaminophen 83.1 ug/mL (10-30)
[2022-07-20 12:47] LABS: Alanine Aminotransferase 30 U/L (0-33); Albumin Level 4.5 g/dL (3.5-5.2); Alkaline Phosphatase 118 U/L (35-105); Aspartate Amino Transferase 24 U/L (0-32); Globulin 3.2 g/dL (1.3-4.6); Total Bilirubin 0.3 mg/dL (0.15-1.2); Total Protein 7.7 g/dL (6.6-8.7)
[2022-07-20] MEDS: dextrose 5%-sod chloride 0.45% 1,000 ML 75 ML IV (14:03)
[2022-07-20] MEDS: labetalol 5 mg/mL SDV 20mL 10 MG IVP (16:39)
[2022-07-20] MEDS: amlodipine 10 mg Tablet PO (19:22)
[2022-07-20] MEDS: cloNIDine 0.2 mg/24 hr Patch 1 PATCH TRANSDERMA (19:29)
--- NOTE | 2022-07-20 19:41 | NUR.SHIFT ---
Pt has left eye prothesis
[2022-07-20] MEDS: hyDRALAzine 20 mg/mL INJ 1 mL 10 MG IVP (21:27)
[2022-07-20] MEDS: hyDRALAzine 50 mg Tablet 75 MG PO (21:28)
--- NOTE | 2022-07-20 22:55 | PM.CCNAC ---
Critical Care Event Note Received a call from the nurse about elevated blood pressure with systolic over 200s. Patient complaining of mild headache otherwise asymptomatic. Patient states she has been hypertensive in the past and is needed to be on oral medication but has not been taking any medications or seen any physician in over 2 years. Does not check her blood pressures at home. Patient admitted for suicidal ideation and attempt with Tylenol overdose. During the day had received 1 dose of labetalol. At around 730 gave patient amlodipine 10 mg oral along with clonidine patch of 0.2. Blood pressures improvement without much help. Rechecked manually. Heart rates running from 65-80. IV hydralazine 10 mg one-time. Start hydralazine 75 mg oral 3 times daily. Along with already started amlodipine 10 mg oral daily and clonidine patch of 0.2. Continue to monitor and add medications accordingly. Check echocardiogram and renal Doppler for evaluation of uncontrolled secondary hypertension The high probability of a clinically significant, sudden or life threatening deterioration of the patient's [cardiac] system(s) required my full and direct attention, intervention and personal management. The critical care time is as shown. This time is in addition to time spent performing any reported procedures but includes the following: [x] Data and vital sign review and interpretation [x] Patient assessment, examination and intervention [x] Documentation [x] Medication orders and management Critical Care Time Code activated: No Critical Care Time (min): 40 Additional information about critical care time: Required to see and review chart multiple times for uncontrolled hypertension. Coding Level of Care Code Critical Care
--- NOTE | 2022-07-20 22:57 | USCV_ITS ---
Linda Livingston Age: 62 Gender: F : 1960 Exam Date: 07/20/2022 23:26 Ordering Phys: Aftab Orozco MD Technologist: NAYA Exam Location: [facility] [place]_ Indication: UNCONTROLLED HTN Aortic Velocity @ SMA (cm/s) 107 RIGHT KIDNEY LEFT KIDNEY Velocity (cm/s) Velocity (cm/s) Sys/Gandara Sys/Gandara Resistive Index Resistive Index 27.9 / 10.9 0.61 Proximal Renal Artery 53.1 / 19.7 0.63 23.8 / 7.8 0.67 Mid Renal Artery 50.7 / 15.5 0.69 47.1 / 19.8 0.58 Distal Renal Artery 31.0 / 13.7 0.56 60.1 / 21.2 0.65 Hilar 53.5 / 17.7 0.67 55.7 / 12.8 0.77 Upper Pole 57.1 / 19.3 0.66 55.7 / 14.8 0.73 Mid Pole 158.2 / 33.3 0.79 63.6 / 21.7 0.66 Lower Pole 102.7 / 17.4 0.83 0.40 Renal Aortic Ratio 0.50 Accleration Index (cm/sec2) 373.00 Hilar 684.00 998.00 Upper Pole 864.00 1138.0 Mid Pole 2640.0 0 0 377.00 Lower Pole 4141.0 0 117.2 Kidney Length (mm) 111.9 FINDINGS No comparison. Bilateral renal cysts. No renal atrophy. No evidence of abdominal aortic aneurysm. There is no evidence of hemodynamically significant right renal artery stenosis. There is no evidence of hemodynamically significant left renal artery stenosis. CONCLUSIONS No sonographic evidence of renal aortic stenosis or aneurysm. Dr. Ara Ram DO (Electronically Signed) Final Date: 21 Jul 2022 07:25 S
--- NOTE | 2022-07-20 22:57 | USCV_ITS ---
Linda Livingston Age: 62 Gender: F : 1960 Exam Date: 07/20/2022 23:48 Ordering Phys: Aftab Orozco MD Technologist: NAYA Exam Location: [facility] [place] [place] Indication: HTN BP: 143 / 61 HR: 103 Rhythm: Sinus Technical Quality: Adequate MEASUREMENTS (Male / Female) Normal Values 2D ECHO LVOT Diameter 2.0 cm LV Ejection Fraction MOD 2C 65.3 % LV Ejection Fraction 2C AL 65.2 % LA Diameter 2.5 cm LA Width 2.6 cm LA Height 5.5 cm RA Width 3.4 cm RA Height 4.4 cm Aorta at Sinotubular Diameter 2.4 cm IVC Diameter 1.3 cm M-MODE Aortic Annulus Diameter 2.9 cm LA Ao Ratio MM 0.6 MV E Point Septal Separation 0.9 cm DOPPLER AV Peak Velocity 200.0 cm/s LVOT Peak Velocity 159.0 cm/s AV Area Cont Eq vti 2.3 cm squared AV Area Cont Eq pk 2.5 cm squared MV Peak Velocity 120.0 cm/s MV Area PHT 3.2 cm squared Mitral E to A Ratio 0.7 MV E' Velocity 46.0 cm/s Mitral E to MV E' Ratio 9.4 Mitral E to LV E' Lateral Ratio 7.9 Mitral E to LV E' Septal Ratio 11.9 TR Peak Velocity 178.8 cm/s TR Peak Gradient 12.8 mmHg TR Mean Velocity 159.0 cm/s TR Mean Gradient 10.7 mmHg TR Velocity Time Integral 45.1 cm TV Peak E Velocity 44.0 cm/s Right Atrial Pressure 3.0 mmHg Pulmonary Artery Systolic Pressu 15.8 mmHg PV Peak Velocity 144.0 cm/s RV Acceleration Time 0.1 s RV Ejection Time 0.3 s RV AcT/ET 0.4 FINDINGS Left Ventricle Normal left ventricular size and systolic function, EF 70 %. No regional wall motion abnormalities. Grade I/IV diastolic dysfunction (abnormal relaxation filling pattern), normal to mildly elevated filling pressures. Right Ventricle The right ventricle is normal in size and function. Right Atrium The right atrium is normal in size. Left Atrium Mildly increased left atrial size. Mitral Valve Trace to mitral valve regurgitation. Aortic Valve Thickened aortic valve. Tricuspid Valve Trace tricuspid valve regurgitation. Pulmonic Valve Pulmonic valve not well visualized. Pericardium Normal pericardium without effusion. Aorta Normal ascending aorta dimension. IVC The inferior vena cava appears normal. CONCLUSIONS Normal left ventricular size and systolic function, EF 70 %. No regional wall motion abnormalities. Grade I/IV diastolic dysfunction (abnormal relaxation filling pattern), normal to mildly elevated filling pressures. Mildly increased left atrial size. Trace to mitral valve regurgitation. Trace tricuspid valve regurgitation. Features of aortic valve sclerosis There is no pericardial effusion. No similar previous studies are available for comparison Dr Hilary Martinez MD FACC (Electronically Signed) Final Date: 21 Jul 2022 09:18 S
[2022-07-21] VITALS (108 sets, daily range): BP systolic 98–172; BP diastolic 59–115; PULSE 33–135; RESP 12–24; TEMP 36.3–36.7; O2SAT 90–97; BMI 26.6
[2022-07-21 04:51] LABS: Basophils # 0.1 10^3/uL (0.0-0.1); Basophils % 0.6 %; Eosinophils # 0.3 10^3/uL (0.0-0.8); Eosinophils % 2.3 %; Hematocrit 49.7 % (37.0-47.0); Hemoglobin 16.1 g/dL (11.5-15.3); Lymphocytes # 2.2 10^3/uL (0.8-4.8); Lymphocytes % 18.2 %; Mean Corpuscular HGB Conc 32.4 g/dL (30.0-36.0); Mean Corpuscular Hemoglobin 29.3 pg (28.0-34.0); Mean Corpuscular Volume 90.4 fl (81-99); Mean Platelet Volume 9.5 fL (7.4-10.4); Monocytes # 0.7 10^3/uL (0.2-0.9); Monocytes % 5.8 %; Neutrophils # 8.72 10^3/uL (1.8-7.7); Neutrophils % 72.8 %; Nucleated Red Blood Cells % 0 %; Platelet Count 299 10^3/cmm (130-400); Red Cell Distribution Width 12.7 % (12.1-15.1)
[2022-07-21 05:02] LABS: Alanine Aminotransferase 59 U/L (0-33); Albumin Level 4.3 g/dL (3.5-5.2); Alkaline Phosphatase 103 U/L (35-105); Anion Gap 14.7 (5-19); Aspartate Amino Transferase 38 U/L (0-32); Blood Urea Nitrogen 14 mg/dL (8-23); Calcium 9.9 mg/dL (8.5-10.5); Carbon Dioxide 25 mmol/L (22-29); Chloride 102 mmol/L (98-107); Globulin 3.2 g/dL (1.3-4.6); Glomerular Filtration Rate 63.4 mL/min (90-130); Glucose 127 mg/dL (65-115); Osmolality Calculated 288 mOsm/kg (285-295); Phosphorus 2.8 mg/dL (2.5-4.5); Potassium 3.7 mmol/L (3.5-5.1); Sodium 138 mmol/L (136-145); Total Bilirubin 0.4 mg/dL (0.15-1.2); Total Protein 7.5 g/dL (6.6-8.7)
[2022-07-21] MEDS: hyDRALAzine 50 mg Tablet 75 MG PO ×3 (08:58→21:26)
[2022-07-21] MEDS: amlodipine 10 mg Tablet PO (08:58)
[2022-07-21] MEDS: carvedilol 12.5 mg Tablet PO ×2 (08:59→18:41)
--- NOTE | 2022-07-21 15:56 | PM.PN ---
Subjective Subjective: chart reveiwed, patient has no new complaints today. States she is still upset about her asking for a divorce. AST/ALT 38 and 59 respectively. No abdominal pain, nausea vomting or diarrhea, tolerated diet well . overnight her BP ranged systolic 180-200. Started on amlodipine, hydralazine. She reports past h/o HTN which has been difficult to control, has not seen a doctor in over 2 years Medications: Reviewed: Yes Vitals/I&O/Wt Last Vital Signs Temp 98.1 F 07/21/22 07:56 Pulse 50 L 07/21/22 12:00 Resp 17 07/21/22 04:15 BP 146/99 07/21/22 07:56 Pulse Ox 94 07/21/22 04:15 O2 Del Method Room Air 07/21/22 07:56 Weight last 48 hrs Weight 78.5 kg Weight 81.647 kg Physical Exam Narrative: General: No acute distress, AO x3 HEENT: PERRLA, pupils bilaterally equal and reactive, pallors not present Chest: Normal vesicular breath sounds, no added sounds, equal good air entry bilaterally CVS: S1-S2 regular, no murmurs, no tachycardia, no gallops, no rubs Abdomen: Soft, nontender, no organomegaly, bowel sounds present Neuro: No focal deficits, no facial deformity, AO x3, power 5/5 in all limbs Data 07/21/22 04:24 07/21/22 04:24 Micro: Microbiology 07/20/22 10:33 Urine Culture - Preliminary Urine,Clean Catch A&P Assessment and plan (1) Acetaminophen overdose: Poison control contacted, appreciate assistance Currently stable No indication for NAC per discussion with poison control Trend liver function enzymes with am labs Avoid hepatotoxins D/c IVF today, encourage po intake (2) Suicide attempt by acetaminophen overdose: Suicide precautions Psychiatry consultation, stable from medical standpoint for transfer to [facility] (3) Tobacco abuse: Patient would benefit from cessation (4) Generalized anxiety disorder: Psychiatry consultation (5) Essential (primary) hypertension: Overnight hypertensive with SBP 200 range, relived with iv labetalol , amlodipine, hydralazine and clonidine patch. Now off clonidine patch Continue amlodpine 10 mg daily, hydralazine 75 mg TID and carvedilol as started overnight D/c iv labetalol Will aim for 20% reduction in systolic BP, okay for SBP 140-150 for now Plan DVT ppx: Low risk Code status: Full Code Attestations Medical Necessity Statement*: stable for transfer to [facility] today Coding Level of Care Code Acute Code for [facility] Fwd Diagnoses Acetaminophen overdose T39.1X1A Suicide attempt by acetaminophen overdose T39.1X2A Tobacco abuse Z72.0 Generalized anxiety disorder F41.1 Essential (primary) hypertension I10
--- NOTE | 2022-07-21 16:53 | PC.NURSE ---
Report Report called to [facility] nurse. Pt's iv's and tele patches removed. Pt belongings are with [facility]. Security called and pt was taken down by wheelchair to [id number].
[2022-07-22 05:42] VITALS: RESP 18
[2022-07-22 06:00] VITALS: RESP 18
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
[2022-07-22] MEDS: amlodipine 10 mg Tablet PO (08:17)
[2022-07-22] MEDS: carvedilol 12.5 mg Tablet PO ×2 (08:17→17:12)
[2022-07-22] MEDS: hyDRALAzine 50 mg Tablet 75 MG PO ×3 (08:17→20:05)
[2022-07-22 08:30] LABS: Alanine Aminotransferase 37 U/L (0-33); Albumin Level 4.3 g/dL (3.5-5.2); Alkaline Phosphatase 112 U/L (35-105); Aspartate Amino Transferase 18 U/L (0-32); Blood Urea Nitrogen 15 mg/dL (8-23); Calcium 10.3 mg/dL (8.5-10.5); Carbon Dioxide 24 mmol/L (22-29); Chloride 103 mmol/L (98-107); Globulin 3.1 g/dL (1.3-4.6); Glomerular Filtration Rate 72.7 mL/min (90-130); Glucose 104 mg/dL (65-115); Osmolality Calculated 287 mOsm/kg (285-295); Sodium 138 mmol/L (136-145); Total Bilirubin 0.4 mg/dL (0.15-1.2); Total Protein 7.4 g/dL (6.6-8.7)
[2022-07-22 08:31] LABS: Acetaminophen < 5.0 ug/mL (10-30)
--- NOTE | 2022-07-22 10:10 | PC.NURSE ---
blood pressure prior to morning medication administration was 134/86 with a pulse of 102. pt then started to not feel well, blood pressure was 97/58. pt sat up and was drinking with this nurse and explained that she was starting to feel better. 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 will continue to monitor and notify physician.
[2022-07-22] MEDS: docusate sodium 100 mg Capsule PO (12:30)
[2022-07-22 16:12] VITALS: BP 148/81
[2022-07-22 20:04] VITALS: BP 130/74; PULSE 81; RESP 19; TEMP 36.4; O2SAT 96
[2022-07-23 06:00] VITALS: RESP 18
[2022-07-23] MEDS: carvedilol 12.5 mg Tablet PO (09:22)
[2022-07-23] MEDS: amlodipine 10 mg Tablet PO (09:22)
[2022-07-23] MEDS: hyDRALAzine 50 mg Tablet 75 MG PO (09:22)
--- NOTE | 2022-07-23 13:35 | W.PM.NPUPNS ---
Subjective NPU Subjective: Patient presented today reporting that she is feeling better. We discussed that her 96-hour hold is up tomorrow and at this point we had no intention of holding her further. She reports that she is doing better and that she acknowledges that her behaviors were dangerous and impulsive and she is working with the treatment team for appropriate follow-up and services to avoid a repeat of the situation. She denies any issues with her medications and reports eating and sleeping fine and was excited about seeing her family. Mental Status Exam MSE Comments: This is an older female, in hospital scrubs, with adequate grooming and eye contact. No abnormal movements. Cooperative with exam in no acute distress. Speech was normal rate and volume. Mood described as pretty good; affect less subdued and brighter. Thought process, organized. Thought content: patient denied any suicidal or homicidal ideation, there were no delusions reported or noted, patient denied any auditory or visual hallucinations. Attention and concentration appeared intact, and memory was mostly reliable, but none were formally tested. Alert and oriented times three. Insight and judgment are fair, impulse control is limited but improving. Vitals/I&O/Wt Last Vital Signs Temp 97.6 F 07/22/22 20:04 Pulse 81 07/22/22 20:04 Resp 18 07/23/22 06:00 BP 130/74 07/22/22 20:04 Pulse Ox 96 07/22/22 20:04 O2 Del Method Room Air 07/22/22 20:04 Weight last 48 hrs Weight 77.111 kg Data NPU 07/21/22 04:24 07/22/22 08:03 Micro: Microbiology 07/20/22 10:33 Urine Culture - Final Urine,Clean Catch Microbiology 07/20/22 10:33 Urine,Clean Catch Urine Culture - Final A&P Assessment and plan (1) Suicide attempt by acetaminophen overdose: (2) Acetaminophen overdose: (3) Generalized anxiety disorder: (4) Major depressive disorder: (5) Tobacco abuse: Plan This is a 62-year-old female, who presents reporting some history of anxiety, and no history of psychiatric hospitalizations, prior to this visit which is secondary to an attempted overdose after a conflict with her , who denies any previous suicidal ideation and denies any current suicidal thoughts or wish to . 1. Continue off of medication. 2. Encourage individual, group, and milieu therapy. 3. Continue q-15 minute checks for safety. 4. Recommend sober living treatment at the highest level of care to which the patient is willing to commit. Involuntary Hold Information 96 Hour Hold: 96 Hour Involuntary Admission: Yes 96 Hour Hold Ending Date: 07/25/22 96 Hour Hold Ending Time: 00:01 Attestations NPU Medical Necessity Statement*: Inpatient hospitalization is medically necessary and the clinically appropriate intervention, at this time. We will monitor medications and make changes as indicated. Likely length of stay is 1-3 days. Coding Level of Care Code Acute Code for [facility] Fwd Diagnoses Suicide attempt by acetaminophen overdose T39.1X2A Acetaminophen overdose T39.1X1A Generalized anxiety disorder F41.1 Major depressive disorder F32.9 Tobacco abuse Z72.0
[2022-07-23 14:00] VITALS: BP 109/69; PULSE 88; RESP 18; TEMP 36.6; O2SAT 96
[2022-07-23] MEDS: efferdent effervescent 1 EACH DENTAL (18:44)
[2022-07-23 21:05] VITALS: BP 117/75; PULSE 99; RESP 18; TEMP 36.4; O2SAT 96
--- NOTE | 2022-07-23 23:41 | PM.PN ---
Subjective Subjective: BP remains controlled. Acetaminopen level now < 5. LFTs stable Medications: Reviewed: Yes Vitals/I&O/Wt Last Vital Signs Temp 97.6 F 07/23/22 21:05 Pulse 99 07/23/22 21:05 Resp 18 07/23/22 21:05 BP 117/75 07/23/22 21:05 Pulse Ox 96 07/23/22 21:05 O2 Del Method Room Air 07/23/22 21:05 Physical Exam Narrative: General: No acute distress, AO x3 HEENT: PERRLA, pupils bilaterally equal and reactive, pallors not present Chest: Normal vesicular breath sounds, no added sounds, equal good air entry bilaterally CVS: S1-S2 regular, no murmurs, no tachycardia, no gallops, no rubs Abdomen: Soft, nontender, no organomegaly, bowel sounds present Neuro: No focal deficits, no facial deformity, AO x3, power 5/5 in all limbs Data 07/21/22 04:24 07/22/22 08:03 A&P Assessment and plan (1) Acetaminophen overdose: acetaminopehn level now < 5 ; AST normalized, ALT trending down, ALP stable (2) Suicide attempt by acetaminophen overdose: Suicide precautions Psychiatry consultation, stable from medical standpoint for transfer to NPU (3) Tobacco abuse: Patient would benefit from cessation (4) Generalized anxiety disorder: Psychiatry consultation (5) Essential (primary) hypertension: Currently BP is well controlled Continue amlodpine 5 mg daily, lisinopril 10 mg daily Plan DVT ppx: Low risk Code status: Full Code Attestations Medical Necessity Statement*: per psychiatric needs Coding Level of Care Code Acute Code for [facility] Fwd Diagnoses Acetaminophen overdose T39.1X1A Suicide attempt by acetaminophen overdose T39.1X2A Tobacco abuse Z72.0 Generalized anxiety disorder F41.1 Essential (primary) hypertension I10
[2022-07-24 06:00] VITALS: BP 145/89; PULSE 92; RESP 18; TEMP 36.3; O2SAT 97
[2022-07-24] MEDS: lisinopril 10 mg Tablet PO (08:51)
[2022-07-24] MEDS: amlodipine 5 mg Tablet PO (08:51)
[2022-07-24] MEDS: docusate sodium 100 mg Capsule PO (08:51)
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
[2022-07-24 09:10] VITALS: BP 145/89; PULSE 92; RESP 18; TEMP 36.3; O2SAT 97
== END 2022-07-24 10:12 | disposition home or self-care (01) | DRG 918 ==
LOC: ER 11:09 → ICU 13:26 → NP 07-21 16:43
PROVIDERS: Admitting Provider Internal Medicine; Emergency Provider Family Medicine; PCP Nurse Practitioner; Visit Provider Student in an Organized Health Care Education/Training Program
DX: T39.1X2A Poisoning by 4-Aminophenol derivatives, intentional self-harm, initial encounter (principal); R45.851 Suicidal ideations; M06.9 Rheumatoid arthritis, unspecified; H54.40 Blindness, one eye, unspecified eye; F32.A Depression, unspecified; I10 Essential (primary) hypertension; F41.1 Generalized anxiety disorder; F17.210 Nicotine dependence, cigarettes, uncomplicated; Z63.0 Problems in relationship with spouse or partner; F12.10 Cannabis abuse, uncomplicated; F15.90 Other stimulant use, unspecified, uncomplicated; Y92.019 Unspecified place in single-family (private) house as the place of occurrence of the external cause
CPT/HCPCS: 36415; 80053; 80076; 80306; 80307; 81001; 83735; 84100; 85025; 87086; 93306; 93975; 96376; 97150; 97165; 99285; J0360; J3490; J7799

== ENCOUNTER → 2022-07-31 14:33 | Outpatient (BNVA) | payer OTHER, SELFPAY | PROVIDERS: PCP Nurse Practitioner; Visit Provider Nurse Practitioner | DX: R05.9 Cough, unspecified (principal); I70.90 Unspecified atherosclerosis | CPT/HCPCS: 71046; 85025 ==

== ENCOUNTER → 2022-08-21 08:49 | Outpatient (BNVA) | payer OTHER, SELFPAY | PROVIDERS: PCP Nurse Practitioner; Visit Provider Nurse Practitioner | DX: I10 Essential (primary) hypertension (principal); J30.1 Allergic rhinitis due to pollen; F41.1 Generalized anxiety disorder; H10.9 Unspecified conjunctivitis; M25.512 Pain in left shoulder; G89.29 Other chronic pain | CPT/HCPCS: 73030; 80061; 84443 ==

== ENCOUNTER → 2022-12-24 11:19 | Outpatient (BNVA) | payer OTHER, SELFPAY | PROVIDERS: PCP Nurse Practitioner; Visit Provider Internal Medicine Cardiovascular Disease | DX: I10 Essential (primary) hypertension (principal); M06.9 Rheumatoid arthritis, unspecified; F17.210 Nicotine dependence, cigarettes, uncomplicated; F32.9 Major depressive disorder, single episode, unspecified; F41.1 Generalized anxiety disorder | CPT/HCPCS: 93005; 99204 ==

== ENCOUNTER 2023-01-01 11:54 | Outpatient (CLI) | payer OTHER, SELFPAY ==
--- NOTE | 2023-01-01 12:15 | USCV_ITS ---
Linda Livingston Age: 62 Gender: F : 1960 Exam Date: 01/01/2023 12:05 Ordering Phys: Cristal Hebert MD ([email or web address]) Technologist: Isaura Franz Exam Location: [facility] [place] Indication: CHRONIC CHF BP: 130 / 70 HR: 73 Rhythm: Sinus Technical Quality: Adequate MEASUREMENTS (Male / Female) Normal Values 2D ECHO LV Diastolic Diameter PLAX 3.5 cm 4.2 - 5.9 / 3.9 - 5.3 cm LV Systolic Diameter PLAX 2.8 cm LV Chamber Size 3.7 cm IVS Diastolic Thickness 1.0 cm 0.6 - 1.0 / 0.6 - 0.9 cm IVS Systolic Thickness 0.8 cm LVPW Diastolic Thickness 1.4 cm 0.6 - 1.0 / 0.6 - 0.9 cm LVPW Systolic Thickness 1.5 cm RV Chamber Size 2.1 cm LVOT Diameter 2.0 cm LV Ejection Fraction 2D Teich 45.2 % LV Ejection Fraction MOD 2C 41.9 % LV Ejection Fraction 2C AL 46.3 % LA Diameter 2.4 cm LA Width 2.6 cm LA Height 3.8 cm RA Width 2.8 cm RA Height 2.9 cm Aorta at Sinotubular Diameter 2.9 cm IVC Diameter 1.7 cm M-MODE Aortic Annulus Diameter 3.5 cm LA Ao Ratio MM 0.9 MV E Point Septal Separation 0.4 cm DOPPLER AV Peak Velocity 188.0 cm/s LVOT Peak Velocity 157.0 cm/s AV Area Cont Eq vti 3.1 cm squared AV Area Cont Eq pk 2.7 cm squared MV Area PHT 2.8 cm squared Mitral E to A Ratio 0.8 MV E' Velocity 43.0 cm/s Mitral E to MV E' Ratio 8.3 Mitral E to LV E' Lateral Ratio 8.0 Mitral E to LV E' Septal Ratio 8.7 TR Peak Velocity 150.0 cm/s TR Peak Gradient 9.0 mmHg TR Mean Velocity 103.6 cm/s TR Mean Gradient 4.8 mmHg TR Velocity Time Integral 31.6 cm TV Peak E Velocity 70.0 cm/s Right Atrial Pressure 3.0 mmHg Pulmonary Artery Systolic Pressu 12.0 mmHg RV Acceleration Time 0.1 s RV Ejection Time 0.3 s RV AcT/ET 0.5 FINDINGS Left Ventricle Normal left ventricular size, systolic function and wall thickness, with no regional wall motion abnormalities. Left ventricular ejection fraction is estimated at 70 %. Normal diastolic function. Right Ventricle Normal right ventricular size and systolic function. Right ventricular systolic pressure 12 mmHg. Right Atrium Normal right atrial size. Left Atrium Normal left atrial size. Mitral Valve Structurally normal mitral valve. No mitral valve stenosis. Trace mitral valve regurgitation. Aortic Valve Structurally normal trileaflet aortic valve. No aortic valve stenosis. No aortic valve regurgitation. Tricuspid Valve Structurally normal tricuspid valve. No tricuspid valve stenosis. Trace to mild tricuspid valve regurgitation. Pulmonic Valve Structurally normal pulmonic valve. No pulmonary valve stenosis. Trace pulmonary valve regurgitation. Pericardium No pericardial effusion. Aorta Normal size aortic root and proximal ascending aorta. IVC Normal IVC dimension with >50% respiratory change of the inferior vena cava. CONCLUSIONS 1. Normal left ventricular size, systolic function and wall thickness, with no regional wall motion abnormalities. Left ventricular ejection fraction is estimated at 70 %. Normal diastolic function. 2. Trace to mild tricuspid valve regurgitation. 3. No change when compared to study dated 07/20/22. Cristal Hebert MD (Electronically Signed) Final Date: 06 January 2023 12:41 S
== END 2023-01-01 11:55 | disposition home or self-care (01) ==
PROVIDERS: PCP Nurse Practitioner; Visit Provider Internal Medicine Cardiovascular Disease
DX: I11.0 Hypertensive heart disease with heart failure (principal); I50.9 Heart failure, unspecified
CPT/HCPCS: 93306

== ENCOUNTER → 2023-04-15 09:12 | Outpatient (BNVA) | payer OTHER, SELFPAY | PROVIDERS: PCP Nurse Practitioner; Visit Provider Nurse Practitioner | DX: F41.1 Generalized anxiety disorder (principal); I10 Essential (primary) hypertension; R00.0 Tachycardia, unspecified; E55.9 Vitamin D deficiency, unspecified | CPT/HCPCS: 80053; 80061; 82306; 82607; 83735; 84443; 85025 ==

== ENCOUNTER 2023-05-04 12:00 | Outpatient (CLI) | payer OTHER, SELFPAY | END 2023-05-04 12:01 | disposition home or self-care (01) | LOC: SLEEP 05-05 13:49 | PROVIDERS: PCP Nurse Practitioner; Visit Provider Nurse Practitioner | DX: G47.10 Hypersomnia, unspecified (principal) | CPT/HCPCS: G0399 ==

== ENCOUNTER 2023-06-02 10:55 | Outpatient (CLI) | payer OTHER, SELFPAY ==
--- NOTE | 2023-06-02 11:00 | MM_ITS ---
WS: [id number] BILATERAL SCREENING DIGITAL TOMOSYNTHESIS MAMMOGRAM WITH CAD HISTORY: Z12.31 - Encounter for screening mammogram for malignant ... COMPARISON: 05/23/2010 Bilateral CC and MLO views with tomosynthesis and synthetic mammography submitted. Computer aided det ection analyzed. Breast composition: There are scattered areas of fibroglandular density. No suspicious masses, microc alcifications or architectural distortion. Benign calcifications within each breast. IMPRESSION: MM/[place] [id number] BI-RADS: 2-Benign FOLLOW UP: 1 Year Follow-up
== END 2023-06-02 10:56 | disposition home or self-care (01) ==
LOC: MOBLMAM 11:00
PROVIDERS: PCP Nurse Practitioner; Visit Provider Nurse Practitioner
DX: Z12.31 Encounter for screening mammogram for malignant neoplasm of breast (principal)
CPT/HCPCS: 77063; 77067

== ENCOUNTER → 2023-07-01 10:35 | Outpatient (BNVA) | payer OTHER, SELFPAY | PROVIDERS: PCP Nurse Practitioner; Visit Provider Nurse Practitioner Family | DX: I10 Essential (primary) hypertension (principal); F17.210 Nicotine dependence, cigarettes, uncomplicated | CPT/HCPCS: 99213 ==

== ENCOUNTER → 2023-08-25 08:30 | Outpatient (BNVA) | payer OTHER, SELFPAY | PROVIDERS: PCP Nurse Practitioner; Visit Provider Nurse Practitioner | DX: J98.01 Acute bronchospasm (principal); Z72.0 Tobacco use; I10 Essential (primary) hypertension; J30.1 Allergic rhinitis due to pollen; E78.2 Mixed hyperlipidemia; F41.1 Generalized anxiety disorder; R00.0 Tachycardia, unspecified | CPT/HCPCS: 80053; 80061; 81000 ==

== ENCOUNTER → 2024-01-06 11:02 | Outpatient (BNVA) | payer OTHER, SELFPAY | PROVIDERS: PCP Nurse Practitioner; Visit Provider Internal Medicine | DX: I10 Essential (primary) hypertension (principal); M06.9 Rheumatoid arthritis, unspecified; Z72.0 Tobacco use; F41.1 Generalized anxiety disorder; F32.9 Major depressive disorder, single episode, unspecified | CPT/HCPCS: 99213 ==

== ENCOUNTER 2024-03-21 16:50 | Emergency (ER) | payer OTHER, SELFPAY ==
[2024-03-21 16:53] VITALS: BP 185/106; PULSE 66; RESP 18; TEMP 36.7; O2SAT 93; BMI 27.2
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
--- NOTE | 2024-03-21 17:40 | ED_ITS ---
Documented by User: THERESA Eastman 03/21/24 18:03 HPI - Extremity Problem General: Chief complaint: Extremity Injury, Lower Stated complaint: rt foot inj Time Seen by Provider: 03/21/24 17:23 Source: patient Mode of arrival: ambulatory Limitations: no limitations History of Present Illness: Patient is a 64-year-old female who presents to the emergency department with right foot pain beginning a couple of hours prior to arrival. Patient states she tried to kick a hat that was hanging on a doorknob, missed the hat completely and struck the doorknob with the dorsum of her right foot. She is reporting point tenderness just medial to the navicular bone, no swelling or bruising. Nothing has been taken for her pain. She has been able to walk, secondary to pain. Reporting intermittent numbness to her right big toe. No pain in her ankle, calf/jain, or knee. MD Complaint: extremity pain Onset (ago): hour(s) Pain Consistency: constant Location: right and other (Foot) Radiation: distal (Numbness to big toe) Exacerbating factors: weight bearing and palpation Associated symptoms: Deny chest pain, fever(s) or rash Related Data Previous Rx's Medication Instructions Recorded CPAP machine and supplies #1 ea 06/10/23 albuterol sulfate 90 mcg/actuation 2 puff inhalation Q6H PRN 08/25/23 aerosol inhaler (Ventolin HFA) shortness of breath or wheezing #8.5 grams fluticasone 250 mcg-salmeterol 50 1 inh inhalation Q12H #60 ea 11/10/23 mcg/dose blistr powdr for inhalation (Advair Diskus) furosemide 20 mg tablet (Lasix) 20 mg PO QAM #30 tabs 11/10/23 magnesium oxide 400 mg PO BID #60 tabs 11/10/23 mometasone 50 mcg/actuation nasal 2 spray intranasal DAILY #17 grams 11/10/23 spray pravastatin 20 mg tablet 20 mg PO DAILY #30 tabs 11/10/23 valsartan 320 mg tablet (Diovan) 320 mg PO DAILY #30 tabs 11/10/23 venlafaxine 75 mg capsule,extended 75 mg PO QAM #30 caps 11/10/23 release 24 hr (Effexor XR) propranolol 20 mg tablet 20 mg PO BID #60 tabs 02/28/24 amlodipine 10 mg tablet 10 mg PO .at bedtime 30 days #30 03/12/24 tabs Allergies Allergy/AdvReac Type Severity Reaction Status Date / Time meperidine [From Demerol] Allergy Severe ADR-Chest Verified 03/21/24 16:56 Pain pseudoephedrine Allergy Unknown ADR-Chest Verified 03/21/24 16:56 [From Sudafed] Pain Review of Systems General: Reports: 10 or more systems reviewed and unremarkable except in HPI and below Const: Denies: fever(s) or chills Card: Denies: chest pain Resp: Denies: dyspnea or productive cough GI: Denies: abdominal pain, nausea, vomiting or diarrhea : Denies: flank pain Musc: Reports: extremity pain (Right foot); Denies: neck pain, back pain, extremity swelling, joint pain, joint swelling, joint redness, joint warmth, limited range of motion or muscle weakness Skin/Breast: Denies: rash Neuro: Reports: numbness in extremities (Right big toe); Denies: headache(s) or weakness in extremities PFSH ED PFSH: Medical History YASMINE on CPAP Bronchospasm Acid reflux Seasonal allergic rhinitis due to pollen Caffeine dependence Blindness of left eye Arthritis, rheumatoid Depression Essential (primary) hypertension Generalized anxiety disorder Tobacco abuse Surgical History History of recent intraocular surgery 2005 removal left eyeball due to childhood injury History of cholecystectomy Family History Mother Cancer Sister Cancer Son Family history of premature coronary artery disease Social History Smoking and tobacco/nicotine status: current every day tobacco/nicotine user cigarettes Packs smoked per day: 1 Years cigarettes smoked: 46 Second hand smoke exposure: No Alcohol intake: never Substance/Drug Use: never Adopted: No Caregiver/support person: No Lives independently: Yes Household members: spouse Marital status: service: No Do you think of yourself as: Straight/Heterosexual Current gender identity: Female Physical Exam Const: COMMON NORMALS: no acute distress, patient oriented x3, no limitations, healthy appearing, alert and well nourished HENMT: COMMON NORMALS: normocephalic and atraumatic HEAD & SCALP: normocephalic and atraumatic Neck/C-Spine: COMMON NORMALS: full ROM, supple and no meningeal signs Resp: COMMON NORMALS: normal respiratory effort and No use of accessory muscles Extremity: COMMON NORMALS: normal to inspection, full ROM, capillary refill normal, no joint enlargement and no clubbing, cyanosis or edema NARRATIVE EXTREMITY EXAM: no obvious swelling, deformity, or signs of trauma to the right foot. Point tenderness to the dorsum of the right foot, no tenderness to the phalanges or to the malleoli. No reproducible tenderness to palpation of the jain or knee. Full range of motion with dorsiflexion and plantarflexion. Good strength. DP/PT pulse present. Neuro: COMMON NORMALS: patient oriented x3, moves all extremities, no focal motor deficits and no sensory deficits noted SENSORIUM/ORIENTATION: Yes alert MENINGEAL SIGNS: Yes no meningeal signs Skin: COMMON NORMALS: no rashes or lesions noted GENERAL SKIN EXAM: no rashes or lesions noted Course Vital Signs: Vital signs: Vital Signs Temperature 98.1 F 03/21/24 16:53 Pulse Rate 52 L 03/21/24 18:04 Respiratory Rate 18 03/21/24 18:04 Blood Pressure 164/96 03/21/24 18:04 Pulse Oximetry 93 03/21/24 18:04 Oxygen Delivery Me thod Room Air 03/21/24 16:53 MDM - Extremity (Nontraumatic) Medical Decision Making Patient presented after kicking door knob couple of hours prior to arrival. Overall physical examination unremarkable, neurologically was intact with no outward signs of trauma. X-ray did not demonstrate any fractures. She is requesting Sivakumar wrap, discussed conservative therapy and following up with primary care routinely. Patient agrees with discharge home at this time. Lab Data Radiology Impressions Foot X-Ray 03/21/24 17:22 IMPRESSION: No acute findings. XR interpretation done by ED provider, pending radiology final review ED provider radiology interpretation(s): X-ray right foot: No acute fracture or dislocation. Discharge Plan Discharge Patient Disposition: Home Clinical Impression: Contusion of foot, right Qualifiers: Encounter type: initial encounter Qualified Code(s): S90.31XA - Contusion of right foot, initial encounter Condition: Stable Prescriptions: No Action albuterol sulfate [Ventolin HFA] 90 mcg/actuation HFA aerosol inhaler 2 puff inhalation Q6H PRN (Reason: shortness of breath or wheezing) Qty: 8.5 2RF (DME) CPAP machine and supplies See Rx Instructions .ROUTE .MEDSUPPLY Qty: 1 0RF Rx Instructions: As directed fluticasone propion-salmeterol [Advair Diskus] 250-50 mcg/dose blister with device 1 inh inhalation Q12H Qty: 60 2RF furosemide [Lasix] 20 mg tablet 20 mg PO QAM Qty: 30 2RF magnesium oxide 400 mg magnesium tablet 400 mg PO BID Qty: 60 2RF mometasone 50 mcg/actuation spray,non-aerosol 2 spray intranasal DAILY Qty: 17 2RF Rx Instructions: administer into each nostril pravastatin 20 mg tablet 20 mg PO DAILY Qty: 30 2RF valsartan [Diovan] 320 mg tablet 320 mg PO DAILY Qty: 30 2RF venlafaxine [Effexor XR] 75 mg capsule,extended release 24hr 75 mg PO QAM Qty: 30 2RF propranolol 20 mg tablet 20 mg PO BID Qty: 60 0RF amlodipine 10 mg tablet 10 mg PO .at bedtime 30 Days Qty: 30 0RF Discharge Orders: Discharge ED (Routine); Ordered 03/21/24 Ordered By: Emeka Pereira Referrals: Verenice Myers, MARILYNC [Primary Care Provider] - Patient Instructions: Contusion in Adults (ED) Activity Restrictions/Additional Instructions: Rest, ice, compression, and elevation. See attached patient instructions for further education. Tylenol/ibuprofen for pain relief. Follow-up with primary care. Coding Level of Care Code ED Motor Vehicles Supervisor for Chg Fwd Documented by User: Tommy Vaz DO 03/22/24 06:15 HPI - Extremity Problem General: Chief complaint: Extremity Injury, Lower Stated complaint: rt foot inj Time Seen by Provider: 03/21/24 17:23 Related Data Previous Rx's Medication Instructions Recorded CPAP machine and supplies #1 ea 06/10/23 albuterol sulfate 90 mcg/actuation 2 puff inhalation Q6H PRN 08/25/23 aerosol inhaler (Ventolin HFA) shortness of breath or wheezing #8.5 grams fluticasone 250 mcg-salmeterol 50 1 inh inhalation Q12H #60 ea 11/10/23 mcg/dose blistr powdr for inhalation (Advair Diskus) furosemide 20 mg tablet (Lasix) 20 mg PO QAM #30 tabs 11/10/23 magnesium oxide 400 mg PO BID #60 tabs 11/10/23 mometasone 50 mcg/actuation nasal 2 spray intranasal DAILY #17 grams 11/10/23 spray pravastatin 20 mg tablet 20 mg PO DAILY #30 tabs 11/10/23 valsartan 320 mg tablet (Diovan) 320 mg PO DAILY #30 tabs 11/10/23 venlafaxine 75 mg capsule,extended 75 mg PO QAM #30 caps 11/10/23 release 24 hr (Effexor XR) propranolol 20 mg tablet 20 mg PO BID #60 tabs 02/28/24 amlodipine 10 mg tablet 10 mg PO .at bedtime 30 days #30 03/12/24 tabs Allergies Allergy/AdvReac Type Severity Reaction Status Date / Time meperidine [From Demerol] Allergy Severe ADR-Chest Verified 03/21/24 16:56 Pain pseudoephedrine Allergy Unknown ADR-Chest Verified 03/21/24 16:56 [From Sudafed] Pain [facility] ED PFS: Medical History YASMINE on CPAP Bronchospasm Acid reflux Seasonal allergic rhinitis due to pollen Caffeine dependence Blindness of left eye Arthritis, rheumatoid Depression Essential (primary) hypertension Generalized anxiety disorder Tobacco abuse Surgical History History of recent intraocular surgery 2005 removal left eyeball due to childhood injury History of cholecystectomy Family History Mother Cancer Sister Cancer Son Family history of premature coronary artery disease Social History Smoking and tobacco/nicotine status: current every day tobacco/nicotine user cigarettes Packs smoked per day: 1 Years cigarettes smoked: 46 Second hand smoke exposure: No Alcohol intake: never Substance/Drug Use: never Adopted: No Caregiver/support person: No Lives independently: Yes Household members: spouse Marital status: service: No Do you think of yourself as: Straight/Heterosexual Current gender identity: Female Course Vital Signs: Vital signs: Vital Signs Temperature 98.1 F 03/21/24 16:53 Pulse Rate 52 L 03/21/24 18:04 Respiratory Rate 18 03/21/24 18:04 Blood Pressure 164/96 03/21/24 18:04 Pulse Oximetry 93 03/21/24 18:04 Oxygen Delivery Me thod Room Air 03/21/24 16:53 MDM - Extremity (Nontraumatic) Medical Decision Making Patient presented after kicking door knob couple of hours prior to arrival. Overall physical examination unremarkable, neurologically was intact with no outward signs of trauma. X-ray did not demonstrate any fractures. She is requesting Sivakumar wrap, discussed conservative therapy and following up with primary care routinely. Patient agrees with discharge home at this time. Chart reviewed and patient discussed with midlevel. Agree with assessment and plan. Lab Data Radiology Impressions Foot X-Ray 03/21/24 17:22 IMPRESSION: No acute findings. Discharge Plan Discharge Patient Disposition: Home Clinical Impression: Contusion of foot, right Qualifiers: Encounter type: initial encounter Qualified Code(s): S90.31XA - Contusion of right foot, initial encounter Condition: Stable Prescriptions: No Action albuterol sulfate [Ventolin HFA] 90 mcg/actuation HFA aerosol inhaler 2 puff inhalation Q6H PRN (Reason: shortness of breath or wheezing) Qty: 8.5 2RF (DME) CPAP machine and supplies See Rx Instructions .ROUTE .MEDSUPPLY Qty: 1 0RF Rx Instructions: As directed fluticasone propion-salmeterol [Advair Diskus] 250-50 mcg/dose blister with device 1 inh inhalation Q12H Qty: 60 2RF furosemide [Lasix] 20 mg tablet 20 mg PO QAM Qty: 30 2RF magnesium oxide 400 mg magnesium tablet 400 mg PO BID Qty: 60 2RF mometasone 50 mcg/actuation spray,non-aerosol 2 spray intranasal DAILY Qty: 17 2RF Rx Instructions: administer into each nostril pravastatin 20 mg tablet 20 mg PO DAILY Qty: 30 2RF valsartan [Diovan] 320 mg tablet 320 mg PO DAILY Qty: 30 2RF venlafaxine [Effexor XR] 75 mg capsule,extended release 24hr 75 mg PO QAM Qty: 30 2RF propranolol 20 mg tablet 20 mg PO BID Qty: 60 0RF amlodipine 10 mg tablet 10 mg PO .at bedtime 30 Days Qty: 30 0RF Discharge Orders: Discharge ED (Routine); Ordered 03/21/24 Ordered By: Emeka Pereira Referrals: Verenice Myers, UNIT COORDINATOR-C [Primary Care Provider] - Patient Instructions: Contusion in Adults (ED) Activity Restrictions/Additional Instructions: Rest, ice, compression, and elevation. See attached patient instructions for further education. Tylenol/ibuprofen for pain relief. Follow-up with primary care. Coding Level of Care Code ED Motor Vehicles Supervisor for Carlos Dia
[2024-03-21 18:04] VITALS: BP 164/96; PULSE 52; RESP 18; O2SAT 93
== END 2024-03-21 18:11 | disposition home or self-care (01) ==
PROVIDERS: Emergency Provider Physician Assistant; PCP Nurse Practitioner
DX: S90.31XA Contusion of right foot, initial encounter (principal); F17.210 Nicotine dependence, cigarettes, uncomplicated; I10 Essential (primary) hypertension; X58.XXXA Exposure to other specified factors, initial encounter
CPT/HCPCS: 73630; 99283

== ENCOUNTER → 2024-04-20 08:22 | Outpatient (BNVA) | payer OTHER, SELFPAY | PROVIDERS: PCP Nurse Practitioner; Visit Provider Nurse Practitioner | DX: I10 Essential (primary) hypertension (principal); E55.9 Vitamin D deficiency, unspecified | CPT/HCPCS: 80053; 80061; 82306; 84443; 85025 ==

== ENCOUNTER → 2024-10-11 09:57 | Outpatient (BNVA) | payer OTHER, SELFPAY | PROVIDERS: PCP Nurse Practitioner; Visit Provider Nurse Practitioner | DX: I10 Essential (primary) hypertension (principal); E78.2 Mixed hyperlipidemia; E55.9 Vitamin D deficiency, unspecified | CPT/HCPCS: 80053; 80061; 82306; 84443; 85025 ==

== ENCOUNTER 2024-10-24 08:53 | Outpatient (CLI) | payer OTHER, SELFPAY ==
--- NOTE | 2024-10-24 09:00 | US_ITS ---
WS: [id number] US pelv w/transvag [id number] HISTORY: N95.0 - Postmenopausal bleeding COMPARISON: None available. Uterus: 8.1 cm x 4.8 cm x 5.0 cm. Normal size anteverted uterus. Heterogeneity throughout the entire uterus. There is a large mass in the anterior myometrium measuring 3.2 x 3.3 x 2.3 mm which is displacing and distorting the endometrium. There are additional scattered hypoechoic masses. There is an area of shadowing in the posterior uterus measuring 3.5 x 3.6 x 1.9 cm. Endometrium: 0.3 cm. Only a small portion of the endometrium is identified and is posteriorly displaced by anterior fibroids. Neither ovary is identified. No free fluid in the cul-de-sac. US/US pelv w/transvag [id number] IMPRESSION: 1. Normal sized heterogeneous uterus with multiple masses. Most consistent wit h a fibroid uterus. 2. The endometrium is being distorted and displaced posteriorly by the fibroid masses. The endometrium is not completely visualized. Endometrium needs to be further evaluated by [employer]EL [employer] SUPERVISOR and with possible biopsy. 3. Neither ovary identified.
== END 2024-10-24 08:54 | disposition home or self-care (01) ==
PROVIDERS: PCP Nurse Practitioner; Visit Provider Nurse Practitioner
DX: N95.0 Postmenopausal bleeding (principal); D25.9 Leiomyoma of uterus, unspecified
CPT/HCPCS: 76830; 76856

== ENCOUNTER 2024-11-10 11:34 | Outpatient (CLI) | payer OTHER, SELFPAY ==
--- NOTE | 2024-11-10 11:40 | MM_ITS ---
WS: [id number] BILATERAL SCREENING DIGITAL TOMOSYNTHESIS MAMMOGRAM WITH CAD HISTORY: Z12.31 - Encounter for screening mammogram for malignant ... COMPARISON: 06/02/2023, 05/23/2010 Bilateral CC and MLO views with tomosynthesis and synthetic mammography submitted. Computer aided detection analyzed. Breast composition: There are scattered areas of fibroglandular density. No suspicious masses, microcalcifications or architectural distortion. Numerous benign calcifications in each breast. MM/MM scr tomosynthesis [id number] IMPRESSION: BI-RADS: 2 - Benign. FOLLOW UP: 1 Year Follow-up
== END 2024-11-10 11:35 | disposition home or self-care (01) ==
LOC: MOBLMAM 11:38
PROVIDERS: PCP Nurse Practitioner; Visit Provider Nurse Practitioner
DX: Z12.31 Encounter for screening mammogram for malignant neoplasm of breast (principal); R92.323 Mammographic fibroglandular density, bilateral breasts; R92.1 Mammographic calcification found on diagnostic imaging of breast
CPT/HCPCS: 77063; 77067

== ENCOUNTER → 2024-12-14 15:13 | Outpatient (BNVA) | payer OTHER, SELFPAY | PROVIDERS: PCP Nurse Practitioner; Visit Provider Obstetrics & Gynecology | DX: Z01.419 Encounter for gynecological examination (general) (routine) without abnormal findings (principal) | CPT/HCPCS: 87624 ==

== ENCOUNTER → 2025-01-04 13:05 | Outpatient (BNVA) | payer MEDICARE, SELFPAY | PROVIDERS: PCP Nurse Practitioner; Visit Provider Internal Medicine | DX: I10 Essential (primary) hypertension (principal); Z72.0 Tobacco use; E78.5 Hyperlipidemia, unspecified; G47.33 Obstructive sleep apnea (adult) (pediatric) | CPT/HCPCS: 99213 ==

== ENCOUNTER → 2025-03-10 10:46 | Outpatient (BNVA) | payer MEDICARE, SELFPAY | PROVIDERS: PCP Nurse Practitioner; Visit Provider Nurse Practitioner | DX: I10 Essential (primary) hypertension (principal); R82.90 Unspecified abnormal findings in urine | CPT/HCPCS: 81000; 87086 ==